=== PATIENT | male | born 1965 | race Two or more races ===

== ENCOUNTER 2021-12-05 12:00 | Outpatient (RCR) | payer MEDICARE, OTHER, SELFPAY ==
[2021-11-08 10:52] VITALS: BP 167/92
== END 2021-12-30 15:59 | disposition home or self-care (01) ==
LOC: HO.PT 12:00
PROVIDERS: PCP Internal Medicine; Visit Provider Physician Assistant Medical
DX: M54.2 Cervicalgia (principal)
CPT/HCPCS: 97110; 97140; 97161; 97530